=== PATIENT | female | born 1995 | race Two or more races ===

== ENCOUNTER 2024-04-04 12:39 | Emergency (ER) | payer OTHER ==
[2024-04-04 12:56] VITALS: BP 123/86; PULSE 83; RESP 18; TEMP 99; BMI 26.2
[2024-04-04] MEDS ORDERED: ONDANSETRON 4 MG/2 ML VIAL ONE (13:37)
[2024-04-04] MEDS ORDERED: ACETAMINOPHEN INJECTION 100 ML ONE (13:37)
[2024-04-04] MEDS: ONDANSETRON 4 MG/2 ML VIAL IVPUSH ONE (13:54)
[2024-04-04] MEDS: ACETAMINOPHEN 1000 MG/100 ML BAG IVPB ONE (13:54)
[2024-04-04 14:00] LABS: BASO % 0.8 % (0-2.0); HEMATOCRIT 47.3 % (32.4-45.2); HEMOGLOBIN 16.1 GM/dL (10.7-15.3); LYMPH % 21.6 % (8-40); MCH 30.4 pg (25.7-33.7); MCHC 34.2 g/dl (32.0-36.0); MEAN PLT VOLUME 7.5 fl (7.5-11.1); MONO % 8.5 % (3.8-10.2); NEUT % 68.1 % (42.8-82.8); PLATELET COUNT 344 10^3/uL (134-434); RBC 5.31 M/mm3 (3.60-5.2); RDW 11.8 % (11.6-15.6); WHITE BLOOD COUNT 9.1 K/mm3 (4.0-10.0)
[2024-04-04 14:05] LABS: EPI CELLS 15 /uL (0-25.1); HCG,QUALITATIVE URINE Negative; HYALINE CASTS 1 /uL (0-3.1); URINE APPEARANCE CLEAR; URINE BACTERIA 143 /uL (0-1359); URINE BILIRUBIN NEGATIVE (NEGATIVE); URINE COLOR YELLOW; URINE GLUCOSE (UA) NEGATIVE (NEGATIVE); URINE KETONE NEGATIVE (NEGATIVE); URINE LEUK ESTERASE TRACE (NEGATIVE); URINE NITRITE NEGATIVE (NEGATIVE); URINE PROTEIN NEGATIVE (NEGATIVE); URINE RBC 7 /uL (0-23.9); URINE UROBILINOGEN 0.2 mg/dL (0.2-1.0); URINE WBC 27 /uL (0-25.8)
[2024-04-04 14:19] LABS: POTASSIUM 4.3 mmol/L (3.5-5.1)
[2024-04-04 14:22] LABS: ALBUMIN 4.3 g/dl (3.4-5.0); BLOOD UREA NITROGEN 14.1 mg/dL (7-18); CALCIUM 10.1 mg/dL (8.5-10.1); MAGNESIUM 2.2 mg/dL (1.8-2.4)
[2024-04-04 14:25] LABS: CREATININE 0.9 mg/dL (0.55-1.3)
[2024-04-04 14:27] LABS: BILIRUBIN,TOTAL 0.6 mg/dL (0.2-1); TOT PROT 7.9 g/dl (6.4-8.2)
[2024-04-04] MEDS ORDERED: CEPHALEXIN MONOHYDRATE 500 MG CAPSULE (UD) ONE (15:08)
[2024-04-04] MEDS: CEPHALEXIN MONOHYDRATE 500 MG CAPSULE (UD) PO ONE ×2 (15:11)
[2024-04-04 15:15] LABS: HIV INTERPRETATION NEGATIVE (NEGATIVE)
== END 2024-04-04 15:12 | disposition home or self-care (01) ==
LOC: JER 12:39
PROC: 3E033NZ Introduction of Analgesics, Hypnotics, Sedatives into Peripheral Vein, Percutaneous Approach (ICD-10-PCS; principal; 2024-04-04)
PROC: 3E033GC Introduction of Other Therapeutic Substance into Peripheral Vein, Percutaneous Approach (ICD-10-PCS; 2024-04-04)
DX: N39.0 Urinary tract infection, site not specified (principal); R11.0 Nausea; R10.30 Lower abdominal pain, unspecified
CPT/HCPCS: 36415; 80053; 81003; 83690; 83735; 84703; 85025; 86803; 87086; 87389; 99284-25; J0131

== ENCOUNTER 2024-11-02 10:10 | Emergency (ER) | payer OTHER ==
[2024-11-02 10:19] VITALS: TEMP 98; BMI 28.3
[2024-11-02] MEDS ORDERED: KETOROLAC TROMETHAMINE 30 MG/1 ML VIAL ONE (11:03)
[2024-11-02] MEDS: KETOROLAC TROMETHAMINE 30 MG/1 ML VIAL IM ONE (11:08)
[2024-11-02] MEDS: SODIUM CHLORIDE 0.9% 500 ML INFUS.BAG IV ONE (12:02)
[2024-11-02 12:15] LABS: ABSOLUTE IMMATURE GRANULOCYTES 0.03 x10^3/uL (0.0-0.031); BASOPHILS # 0.06 x10^3/uL (0.01-0.08); EOSINOPHIL % 2.1 % (0.7-5.8); EOSINOPHILS # 0.19 x10^3/uL (0.04-0.36); HEMATOCRIT 45.8 % (34.1-44.9); HEMOGLOBIN 15.5 g/dL (11.2-15.7); MCHC 33.8 g/dl (32.2-35.5); MEAN CELL VOLUME 87.9 fl (79.4-94.8); MEAN PLT VOLUME 9.9 fl (9.4-12.3); MONOCYTE # 0.66 x10^3/uL (0.24-0.86); MONOCYTE % 7.1 % (4.7-12.5); PLATELET COUNT 362 x10^3/uL (182-369); RDW 12.3 % (12.1-16.5)
[2024-11-02 12:33] LABS: POTASSIUM 4.3 mmol/L (3.5-5.1)
[2024-11-02 12:34] LABS: CALCIUM 9.6 mg/dL (8.5-10.1)
[2024-11-02 12:35] LABS: ALBUMIN 3.6 g/dl (3.4-5.0); BLOOD UREA NITROGEN 16.4 mg/dL (7-18)
[2024-11-02 12:38] LABS: BILIRUBIN,TOTAL 0.6 mg/dL (0.2-1); CREATININE 0.9 mg/dL (0.55-1.3); TOT PROT 7.2 g/dl (6.4-8.2)
[2024-11-02 12:51] LABS: HCV DIAGNOSTIC IN-HOUSE W/RFLX NON-REACTIVE (NONREACTIVE); HIV INTERPRETATION NEGATIVE (NEGATIVE)
[2024-11-02 13:57] VITALS: BP 110/84; PULSE 67; RESP 18
== END 2024-11-02 13:57 | disposition home or self-care (01) ==
LOC: JER 10:10
PROC: 3E0233Z Introduction of Anti-inflammatory into Muscle, Percutaneous Approach (ICD-10-PCS; principal; 2024-11-02)
DX: M54.6 Pain in thoracic spine (principal); R53.83 Other fatigue
CPT/HCPCS: 36415; 72070-TC-FY; 80053; 83735; 84703; 85025; 86803; 87389; 99284-25

== ENCOUNTER 2025-03-28 20:54 | Emergency (ER) | payer OTHER ==
[2025-03-28 21:01] VITALS: BP 122/87; PULSE 69; RESP 19; TEMP 97.8; BMI 28.3
[2025-03-28] MEDS ORDERED: METHOCARBAMOL 500 MG TABLET ONE (21:29)
[2025-03-28] MEDS ORDERED: LIDOCAINE 4% PATCH TP ONE (21:29)
[2025-03-28] MEDS ORDERED: ACETAMINOPHEN 325 MG TABLET (FP) ONE (21:29)
[2025-03-28] MEDS ORDERED: KETOROLAC TROMETHAMINE 30 MG/1 ML VIAL ONE (21:30)
[2025-03-28] MEDS: METHOCARBAMOL 500 MG TABLET PO ONE (21:40)
[2025-03-28] MEDS: ACETAMINOPHEN 500 MG TABLET (FP) PO ONE (21:40)
[2025-03-28] MEDS: LIDOCAINE 5% TOPICAL PATCH TP ONE (21:41)
[2025-03-28] MEDS: KETOROLAC TROMETHAMINE 30 MG/1 ML VIAL IM ONE (21:41)
[2025-03-28] MEDS: LIDOCAINE 4% PATCH TP ONE (21:41)
[2025-03-28] MEDS: LIDOCAINE PATCH REMOVAL MC ONE (22:34)
[2025-03-28] MEDS: LIDOCAINE PATCH REMOVAL MC SCH (22:35)
== END 2025-03-28 22:40 | disposition home or self-care (01) ==
LOC: JERFT 20:54
PROC: 3E0233Z Introduction of Anti-inflammatory into Muscle, Percutaneous Approach (ICD-10-PCS; principal; 2025-03-28)
DX: M54.50 Low back pain, unspecified (principal); G89.29 Other chronic pain
CPT/HCPCS: 99284-25